=== PATIENT | female | born 1955 | race Caucasian/White ===

== ENCOUNTER 2023-12-24 14:02 | Emergency (ER) | payer MEDICARE, BC ==
[2023-12-24] MEDS ORDERED: Promethazine HCl 25 MG/ML VIAL ONE (14:28)
[2023-12-24 14:32] LABS: #Basophils 0.1 thou/uL (0.0-0.2); #Eosinphils 0.1 thou/uL (0.0-0.7); #Lymphocytes 0.8 thou/uL (1.20-3.40); #Monocytes 0.4 thou/uL (0.11-0.59); #Neutrophils 5.8 thou/uL (1.40-6.50); %Basophils 0.9 % (0.0-1.0); %Eosinophils 0.8 % (0.0-10.0); %Lymphocytes 11.4 % (21.0-51.0); %Neutrophils 80.9 % (42.0-75.0); Hematocrit 39.1 % (36.0-47.0); Hemoglobin 12.8 g/dL (12.0-16.0); Mean Corpuscular HGB CONC 32.7 g/dL (32.0-36.0); Mean Corpuscular Volume 94.8 fl (78.0-98.0); Mean Platelet Volume 6.7 fL (7.4-10.4); Platelet Count 358 10x3/uL (130-400); RBC Distribution Width 12.8 % (11.5-14.5); Red Blood Cell (RBC) Count 4.13 mill/uL (4.20-5.40); White Blood Cell (WBC) Count 7.2 10x3/uL (4.8-10.8)
[2023-12-24 14:44] LABS: Base Excess-Venous -6.9 mmol/L (-2.0 to 3.0); Bicarbonate (HCO3v) 19.4 mmol/L (22.0-28.0); CO2 Tension (PvCO2) 40.5 mmHg (42.0-51.0); Calcium, Ionized 1.17 mmol/L (1.15-1.33); Chloride 104 mmol/L (98-107); Hemoglobin - Calc 13.8 g/dL (12.0-16.0); Potassium 3.2 mmol/L (3.5-5.1); Sodium 137 mmol/L (138-145); T. Carbon Dioxide 20.6 mmol/L (22.0-28.0); vO2 Saturation-calc 82.5 % (60.0-85.0)
[2023-12-24 14:56] LABS: ALT (SGPT) 21 U/L (8-55); AST (SGOT) 15 U/L (5-34); Albumin 3.7 g/dL (3.4-4.8); Alkaline Phosphatase 34 U/L (40-110); Anion Gap 20 mmol/L (10-20); BUN (Urea Nitrogen) 18 mg/dL (9.8-20.1); Bilirubin, Total 0.6 mg/dL (0.2-1.2); Calc. Creatinine Clearance 0 mL/min (70-130); Calcium 8.6 mg/dL (7.8-10.44); Carbon Dioxide 17 mmol/L (23-31); Chloride 103 mmol/L (98-107); Estimated GFR 58; Globulin 1.8 g/dL (2.4-3.5); Glucose 232 mg/dL (80-115); Lipase 6 U/L (8-78); Potassium 3.2 mmol/L (3.5-5.1); Protein, Total 5.5 g/dL (5.8-8.1); Sodium 137 mmol/L (136-145)
[2023-12-24 15:16] LABS: Bilirubin Small (Negative); Blood, Urine Negative (Negative); Clarity Clear (Clear); Glucose, Urine (Dipstick) 100 mg/dL (Negative); Ketone, Urine > or equal to 80 mg/dL (Negative); Leukocyte Negative (Negative); Nitrite Negative (Negative); Protein, Urine (Dipstick) Trace mg/dL (Neg-Trace); Urobilinogen 0.2 mg/dL (Less than 2); pH, Urine 5.5 (5.0-9.0)
[2023-12-24 15:17] LABS: Specific Gravity, Urine 1.024 (1.002-1.036)
[2023-12-24] MEDS ORDERED: NS 0.9% w/ 20 MEQ KCL 1,000 ML ONE (15:17)
[2023-12-24 15:23] LABS: Bacteria/HPF 2+ HPF (None Seen); CAUTI Indications for Culture Dysuria,urgency,freq; RBC/HPF None Seen HPF (0-3); WBC/HPF 0-3 HPF (0-3)
[2023-12-24 15:25] LABS: Urine Culture Reflex No No
[2023-12-24 16:49] LABS: Anion Gap 16 mmol/L (10-20); BUN (Urea Nitrogen) 15 mg/dL (9.8-20.1); Calc. Creatinine Clearance 0 mL/min (70-130); Calcium 7.8 mg/dL (7.8-10.44); Carbon Dioxide 18 mmol/L (23-31); Chloride 107 mmol/L (98-107); Estimated GFR 74; Glucose 179 mg/dL (80-115); Potassium 3.9 mmol/L (3.5-5.1); Sodium 137 mmol/L (136-145)
[2023-12-24 16:51] LABS: Base Excess-Venous -4.7 mmol/L (-2.0 to 3.0); CO2 Tension (PvCO2) 40.3 mmHg (42.0-51.0); Calcium, Ionized 1.12 mmol/L (1.15-1.33); Chloride 106 mmol/L (98-107); Hemoglobin - Calc 12.1 g/dL (12.0-16.0); Sodium 138 mmol/L (138-145); T. Carbon Dioxide 22.3 mmol/L (22.0-28.0); vO2 Saturation-calc 69.4 % (60.0-85.0)
[2023-12-24] MEDS ORDERED: INSULIN REGULAR IN 0.9 % NACL 100 UNITS/100 ML BAG ONE (17:15)
[2023-12-24] MEDS ORDERED: D5 1/2 NS w/20 mEq KCL 1,000 ML IV SCH (18:00)
[2023-12-24 19:05] LABS: Base Excess-Venous -4.5 mmol/L (-2.0 to 3.0); Bicarbonate (HCO3v) 20.7 mmol/L (22.0-28.0); CO2 Tension (PvCO2) 37.9 mmHg (42.0-51.0); Calcium, Ionized 1.09 mmol/L (1.15-1.33); Chloride 105 mmol/L (98-107); Hemoglobin - Calc 12.9 g/dL (12.0-16.0); Potassium 3.9 mmol/L (3.5-5.1); Sodium 149 mmol/L (138-145); T. Carbon Dioxide 21.9 mmol/L (22.0-28.0)
== END 2023-12-24 20:14 | disposition short-term general hospital (02) ==
LOC: BURERS 14:02
DX: E10.10 Type 1 diabetes mellitus with ketoacidosis without coma (principal); R11.2 Nausea with vomiting, unspecified; K52.832 Lymphocytic colitis
CPT/HCPCS: 36416; 80053; 81001; 82010; 82330; 82803; 83690; 85025; 96361; 96374; 96375; 36415-59; J1815; J2550; J3480